=== PATIENT | male | born 1985 | race Caucasian/White ===

== ENCOUNTER 2020-11-24 14:41 | Emergency (ER) | payer BC, SELFPAY ==
[2020-11-24 15:31] VITALS: BP 136/95; PULSE 101; RESP 17; TEMP 39.3; O2SAT 94; BMI 24.2
--- NOTE | 2020-11-24 15:45 | XRR_ITS ---
PROCEDURE INFORMATION: Exam: XR Chest Exam date and time: 11/24/2020 3:45 PM Age: 35 years old Clinical indication: Cough and dyspnea; Additional info: Dyspnea cough covid TECHNIQUE: Imaging protocol: XR of the chest. Views: 1 view. COMPARISON: No relevant prior studies available. FINDINGS: Lungs: Ill-defined peripheral opacity in the left mid lung. Pleural spaces: Unremarkable. No pleural effusion. No pneumothorax. Heart/Mediastinum: Unremarkable. No cardiomegaly. Bones/joints: Unremarkable. XR/XR chest 1V portable [id number] IMPRESSION: Ill-defined peripheral opacity in the left mid lung raising suspicion for COVID pneumonia.
[2020-11-24 22:00] VITALS: BP 146/93; PULSE 95; RESP 17; O2SAT 94
[2020-11-24 22:01] VITALS: O2SAT 94
[2020-11-24] MEDS: acetaminophen 500 mg Tablet 1000 MG PO (22:03)
--- NOTE | 2020-11-24 22:04 | ED_ITS ---
HPI - COVID General: Chief Complaint: COVID symptoms Stated Complaint: COVID + Time Seen by Provider: 11/24/20 21:52 Source: patient Mode of arrival: ambulatory Limitations: no limitations Triage information: Has fever, cough or shortness of breath . Exposure to COVID + person last 14 days History of Present Illness: HPI Narrative: 35-year-old male states he has been having Covid symptoms for the last 10 days tested +1-week ago. He states that he has been having cough fever along with nausea and just generalized weakness. Patient is well-appearing here in not requiring any oxygen is 95% on room air. He denies any worsening improving factors. COVID 19 common symptoms: positive fever(s), chills, non-productive cough, dyspnea, body aches and nausea; negative headache(s) or throat pain COVID 19 other sytmptoms: negative chest pain COVID Results: No Data to Display Review of Systems Const: Reports: fever(s), chills and body aches Eyes: Denies: blurry vision or eye discomfort ENMT: Denies: throat pain or dental pain Card: Denies: chest pain Resp: Reports: dyspnea and non-productive cough GI: Reports: nausea : Denies: dysuria Musc: Denies: neck pain or back pain Skin/Breast: Denies: rash Neuro: Denies: headache(s) Psych: Denies: depression Gus/Lymph: Denies: easy bruising All/Imm: Denies: urticaria PFSH ED PFSH: Family History (Updated 11/16/20 @ 15:23 by Padmini Zuniga LPN) Other Cancer Social History (Updated 11/16/20 @ 15:23 by Padmini Zuniga LPN) Smoking and tobacco status: never smoked Alcohol intake: never Physical Exam Const: COMMON NORMALS: no acute distress, patient oriented x3 and healthy appearing HENMT: COMMON NORMALS: normocephalic and atraumatic HEAD & SCALP: normocephalic and atraumatic Eye: COMMON NORMALS: Equal, round and reactive pupils present and EOMs intact bilaterally PUPIL: Yes Equal, round and reactive pupils present Neck/C-Spine: COMMON NORMALS: full ROM and supple Chest: COMMONS NORMALS: normal inspection of the chest and normal palpation of entire chest wall Resp: COMMON NORMALS: normal respiratory effort, No retractions and No use of accessory muscles Cardio: COMMON NORMALS: regular rate, regular rhythm and No murmurs present (Cardio) RATE: regular rate RHYTHM: regular rhythm GI: COMMON NORMALS: Normal to inspection, nondistended, normoactive bowel sounds present, Soft to palpation, non-tender and no masses PALPATION: Yes Soft to palpation Extremity: COMMON NORMALS: normal to inspection and full ROM Neuro: COMMON NORMALS: patient oriented x3, moves all extremities and no focal motor deficits Psych: COMMON NORMALS: mental status grossly normal, Normal thought process present and cooperative THOUGHT PROCESS: Normal thought process present Skin: COMMON NORMALS: no rashes or lesions noted and no wounds GENERAL SKIN EXAM: no rashes or lesions noted Course Vital Signs: Vital signs: Vital Signs Temperature 102.7 F H 11/24/20 15:31 Pulse Rate 95 11/24/20 22:00 Respiratory Rate 17 11/24/20 22:00 Blood Pressure 146/93 11/24/20 22:00 Pulse Oximetry 94 11/24/20 22:01 MDM - COVID MDM Narrative: Medical decision making narrative: Patient presents here with Covid. Patient's fevers improved here and he feels improved. His blood work is normal. X-ray does show Covid pneumonia. We will start him on steroids and albuterol inhaler. He is to follow-up his PCP and return if worsening. He is stable for discharge at this time. Lab Data: Labs: Lab Results 11/24/20 11/24/20 Range/Units 22:29 22:29 WBC 3.9 L (4.0-10.0) 10^3/ uL RBC 4.85 (4.1-5.3) 10^6/u L Hgb 14.9 (11.7-16.6) g/dL Hct 42.3 (42.0-52.0) % MCV 87.2 (80-94) fL MCH 30.7 (28.0-34.0) pg MCHC 35.2 (30.0-36.0) g/dL RDW 10.7 L (12.1-15.1) % Plt Count 170 (130-400) 10^3/c mm MPV 10.0 (7.4-10.4) fL Neut % (Auto) 49.4 % Lymph % (Auto) 39.2 % [place] % (Auto) 10.1 % Eos % (Auto) 0.0 % Baso % (Auto) 0.3 % Neut # (Auto) 1.90 (1.8-7.7) 10^3/u L Lymph # (Auto) 1.5 (0.8-4.8) 10^3/u L [place] # (Auto) 0.4 (0.2-0.9) 10^3/u L Eos # (Auto) 0.0 (0.0-0.8) 10^3/u L Baso # (Auto) 0.0 (0.0-0.1) 10^3/u L Nucleated RBC % (a uto) 0 % Nucleated RBCs # 0.0 /100WBC Sodium 133 L (136-145) mmol/L Potassium 3.7 (3.5-5.1) mmol/L Chloride 96 L (98-107) mmol/L Carbon Dioxide 25 (22-29) mmol/L Anion Gap 15.7 (5-19) BUN 8 (6-20) mg/dL Creatinine 0.8 (0.7-1.2) mg/dL GFR Calculation 110.7 (90-130) mL/min Glucose 104 (65-115) mg/dL Calculated Osmolal ity 275 L (285-295) mOsm/k g Calcium 8.4 L (8.5-10.5) mg/dL Total Bilirubin 0.4 (0.15-1.2) mg/dL AST 19 (0-40) U/L ALT 13 (0-41) U/L Alkaline Phosphata se 51 (40-130) IU/L Total Protein 6.3 L (6.6-8.7) g/dL Albumin 3.7 (3.5-5.2) g/dL Globulin 2.6 (1.3-4.6) g/dL Imaging Data: CXR: Attestation: I personally reviewed and interpreted this imaging study as follows: My impression: perihilar infiltrates c/w covid COVID Results: No Data to Display Discharge Plan Discharge Patient Disposition: Home Clinical Impression: COVID-19 Condition: Stable Prescriptions: New azithromycin 250 mg tablet See Rx Instructions .ROUTE .COMPLEX Qty: 6 RF: 0 albuterol sulfate 90 mcg/actuation HFA aerosol inhaler 2 inh INHALATION Q6H PRN (Reason: shortness of breath or wheezing) Qty: 8 RF: 0 Medrol (Addy) 4 mg tablets,dose pack See Rx Instructions .ROUTE .COMPLEX Qty: 21 RF: 0 No Action valacyclovir 500 mg tablet 500 mg PO DAILY PRNRF: 0 Discharge Orders: Discharge ED (Routine); Ordered 11/24/20 Ordered By: Shayan Bautista Referrals: Timothy Nogueira Jr, MD [Primary Care Provider] - 1-3 days Discharge Diet: Advance as tolerated Discharge Activity: Resume usual activity Patient Instructions: Viral Syndrome (ED) Coding Level of Care Code ED Supervisor Laundry for [employer] Fwd Exam Comprehensive
[2020-11-24 22:20] VITALS: PULSE 78; RESP 20; O2SAT 92
[2020-11-24 22:25] VITALS: PULSE 78
[2020-11-24] MEDS: ondansetron 2 mg/ML SDV 2 mL 4 MG IVP (22:26)
[2020-11-24] MEDS: sodium chloride 0.9% 1,000 ML 999 ML IV (22:26)
[2020-11-24 22:36] LABS: Basophils % 0.3 %; Hematocrit 42.3 % (42.0-52.0); Hemoglobin 14.9 g/dL (11.7-16.6); Lymphocytes # 1.5 10^3/uL (0.8-4.8); Lymphocytes % 39.2 %; Mean Corpuscular HGB Conc 35.2 g/dL (30.0-36.0); Mean Corpuscular Hemoglobin 30.7 pg (28.0-34.0); Mean Corpuscular Volume 87.2 fL (80-94); Monocytes # 0.4 10^3/uL (0.2-0.9); Monocytes % 10.1 %; Neutrophils % 49.4 %; Nucleated Red Blood Cells % 0 %; Platelet Count 170 10^3/cmm (130-400); Red Blood Count 4.85 10^6/uL (4.1-5.3); Red Cell Distribution Width 10.7 % (12.1-15.1); White Blood Count 3.9 10^3/uL (4.0-10.0)
[2020-11-24 23:02] LABS: Alanine Aminotransferase 13 U/L (0-41); Albumin Level 3.7 g/dL (3.5-5.2); Alkaline Phosphatase 51 IU/L (40-130); Anion Gap 15.7 (5-19); Aspartate Amino Transferase 19 U/L (0-40); Blood Urea Nitrogen 8 mg/dL (6-20); Calcium 8.4 mg/dL (8.5-10.5); Carbon Dioxide 25 mmol/L (22-29); Chloride 96 mmol/L (98-107); Globulin 2.6 g/dL (1.3-4.6); Glomerular Filtration Rate 110.7 mL/min (90-130); Glucose 104 mg/dL (65-115); Osmolality Calculated 275 mOsm/kg (285-295); Potassium 3.7 mmol/L (3.5-5.1); Sodium 133 mmol/L (136-145); Total Bilirubin 0.4 mg/dL (0.15-1.2); Total Protein 6.3 g/dL (6.6-8.7)
[2020-11-24 23:18] LABS: Slide Review Slide Review Perform
[2020-11-24 23:38] VITALS: PULSE 90; RESP 18; TEMP 36.8; O2SAT 96
== END 2020-11-24 23:39 | disposition home or self-care (01) ==
PROVIDERS: Emergency Provider Emergency Medicine; PCP Family Medicine
DX: U07.1 COVID-19 (principal)
CPT/HCPCS: 71045; 80053; 85025; 94640; 96361; 96374; 99284; J2405; J3535; J7030

== ENCOUNTER → 2023-05-23 15:22 | Outpatient (BNVA) | payer BC, SELFPAY | PROVIDERS: PCP Electrodiagnostic Medicine; Visit Provider Podiatrist Foot & Ankle Surgery | DX: M72.2 Plantar fascial fibromatosis; M24.571 Contracture, right ankle | CPT/HCPCS: 73630 ==

== ENCOUNTER 2024-08-08 13:42 | Emergency (ER) | payer BC, SELFPAY ==
[2024-08-08 13:49] VITALS: BP 151/82; PULSE 89; TEMP 36.8; O2SAT 97; BMI 25.8
--- NOTE | 2024-08-08 13:58 | W.ED.EXTPRO ---
HPI - Extremity Problem General: Chief complaint: Extremity Problem,Nontraumatic Stated complaint: R side numbness and tingling Time Seen by Provider: 08/08/24 13:57 History of Present Illness: 39-year-old male presents emergency room complaining of right-sided facial numbness it has been going on for the last week. He was initially seen at a walk-in clinic they presumptively treated him for possible shingles after that he was seen by his primary care doctor and he was started on steroids for presumed facial nerve palsy. He now also has some discomfort in his right shoulder radiating down to his hand. The facial numbness does not seem as if it has worsened. He did admit to recently doing some pull-ups just prior to the shoulder issue developing. Associated symptoms: Deny chest pain, fever(s) or rash Related Data Home Medications ?Medication ?Instructions ?Recorded ?Confirmed valacyclovir 500 mg tablet 500 mg PO DAILY PRN 11/16/20 07/04/23 Previous Rx's ?Medication ?Instructions ?Recorded albuterol sulfate 90 mcg/actuation 2 inh inhalation Q6H PRN shortness 11/24/20 aerosol inhaler of breath or wheezing #8 grams azithromycin 250 mg tablet See Rx Instructions PO .COMPLEX #6 11/24/20 tabs methylprednisolone 4 mg tablets in See Rx Instructions PO .COMPLEX 11/24/20 a dose pack (Medrol (Addy)) #21 ea meloxicam 15 mg tablet 15 mg PO DAILY #14 tabs 05/23/23 methylprednisolone 4 mg tablets in See Rx Instructions PO PER PKG DIR 06/13/23 a dose pack (Medrol (Addy)) #21 ea Allergies Allergy/AdvReac Type Severity Reaction Status Date / Time Penicillins Allergy unknown Verified 08/08/24 13:55 Sulfa (Sulfonamide Allergy hives Verified 08/08/24 13:55 Antibiotics) Review of Systems Const: Denies: fever(s) or chills Card: Denies: chest pain Resp: Denies: dyspnea GI: Denies: abdominal pain : Denies: dysuria, urinary frequency or urinary urgency Musc: Denies: neck pain or back pain Skin/Breast: Denies: rash PFSH ED PFSH: Family History Other Cancer Social History Smoking and tobacco/nicotine status: never used tobacco/nicotine Alcohol intake: never Substance/Drug Use: never Physical Exam Const: COMMON NORMALS: no acute distress GENERAL APPEARANCE: cooperative and comfortable ORIENTATION/CONSCIOUSNESS: Yes awake, Yes oriented to person, Yes oriented to place and Yes oriented to time HENMT: COMMON NORMALS: normocephalic, atraumatic and hearing grossly normal bilaterally HEAD & SCALP: normocephalic and atraumatic Resp: COMMON NORMALS: normal respiratory effort, No retractions, No use of accessory muscles and clear to auscultation bilaterally AUSCULTATION: clear to auscultation bilaterally Cardio: COMMON NORMALS: regular rate, regular rhythm and No murmurs present (Cardio) RATE: regular rate RHYTHM: regular rhythm Extremity: COMMON NORMALS: normal to inspection, capillary refill normal, no clubbing, cyanosis or edema, no calf tenderness and no pedal edema Neuro: SENSORIUM/ORIENTATION: Yes oriented to person, Yes oriented to place and Yes oriented to time OTHER: No focal neurologic deficits are noted Skin: COMMON NORMALS: no rashes or lesions noted GENERAL SKIN EXAM: no rashes or lesions noted Course Vital Signs: Vital signs: Vital Signs Temperature 98.2 F 08/08/24 13:49 Pulse Rate 89 08/08/24 13:49 Blood Pressure 151/82 08/08/24 13:49 Pulse Oximetry 97 08/08/24 13:49 Oxygen Delivery Me thod Room Air 08/08/24 13:49 MDM - Extremity (Nontraumatic) Medical Decision Making Suspect he does have 2 separate issues 1 I agree with his primary that he probably has very mild facial nerve palsy. 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 He does have mild discomfort on direct testing for sensation though his sensation in the right and left hands and on the right and left side of the face are all equal. Recommend that he continue the steroids use ibuprofen as needed for his shoulder avoid any strenuous activities follow-up with his primary care doctor return if he has further problems. CT of his head was done was negative. Lab Data Radiology Impressions Head CT 08/08/24 15:02 IMPRESSION: No acute intracranial pathology. All radiology interpretation(s) finalized by discharge Discharge Plan Discharge Patient Disposition: Home Clinical Impression: Facial nerve palsy, Right shoulder strain Condition: Stable Prescriptions: No Action valacyclovir 500 mg tablet 500 mg PO DAILY PRN meloxicam 15 mg tablet 15 mg PO DAILY Qty: 14 0RF methylprednisolone [Medrol (Addy)] 4 mg tablets,dose pack See Rx Instructions PO PER PKG DIR Qty: 21 0RF Rx Instructions: PO PER PKG DIR azithromycin 250 mg tablet See Rx Instructions .ROUTE .COMPLEX Qty: 6 0RF Rx Instructions: take 500 mg today (day 1), then 250 mg for 4 days (days 2-5) albuterol sulfate 90 mcg/actuation HFA aerosol inhaler 2 inh INHALATION Q6H PRN (Reason: shortness of breath or wheezing) Qty: 8 0RF Medrol (Addy) 4 mg tablets,dose pack See Rx Instructions .ROUTE .COMPLEX Qty: 21 0RF Rx Instructions: orally per package directions Discharge Orders: Discharge ED (Routine); Ordered 08/08/24 Ordered By: Eugene Faulkner Referrals: Demetris Morales DO [Primary Care Provider] - Discharge Diet: Usual diet Discharge Activity: Resume usual activity Patient Instructions: Opioid Safety, Pain Management Activity Restrictions/Additional Instructions: Thank you for choosing [facility] for your healthcare needs today. It is very important that you follow up as instructed or that you return to the Emergency Department should you have concerns or if your condition changes or worsens in any way. You were seen in the emergency room with complaints of facial numbness that you have had for some time your CT of your head was negative agree with Dr. Morales's assessment this is likely a facial nerve palsy continue taking the steroids he previously prescribed. The discomfort in your arm suspect is likely related to physical activity as a separate issue the prednisone will be helpful with that as well. Follow-up with your primary care physician if not improving Print Language: Romanian Coding Level of Care Code ED Teacher [employer] for Sandra Xiong
--- NOTE | 2024-08-08 15:02 | CTR_ITS ---
PROCEDURE INFORMATION: Exam: CT Head Without Contrast Exam date and time: 08/08/2024 3:59 PM Age: 39 years old Clinical indication: Weakness, extremity; Bilateral; Additional info: R facial numbness, R arm numbness TECHNIQUE: Imaging protocol: Computed tomography of the head without contrast. Radiation optimization: All CT scans at this facility use at least one of these dose optimization techniques: automated exposure control; mA and/or kV adjustment per patient size (includes targeted exams where dose is matched to clinical indication); or iterative reconstruction. COMPARISON: No relevant prior studies available. RADIATION DOSE METRICS: Total DLP (mGy-cm): 1030.88 FINDINGS: Brain: No evidence of mass effect, intracranial hemorrhage or extra-axial collection. No acute infarct. Cerebral ventricles: Ventricular size and configuration within normal limits for age. Paranasal sinuses: No significant pathology. Mastoid air cells: Mastoids are within normal limits. Orbital cavities: Orbits are within normal limits. Bones: No significant pathology. Soft tissues: No significant pathology. CT/CT head wo con* [id number] IMPRESSION: No acute intracranial pathology.
== END 2024-08-08 17:41 | disposition home or self-care (01) ==
PROVIDERS: Emergency Provider Family Medicine; PCP Electrodiagnostic Medicine
DX: G51.0 Bell's palsy (principal); S46.911A Strain of unspecified muscle, fascia and tendon at shoulder and upper arm level, right arm, initial encounter; X58.XXXA Exposure to other specified factors, initial encounter
CPT/HCPCS: 70450; 99284